=== PATIENT | female | born 1960 | race Caucasian/White ===

== ENCOUNTER → 2018-03-20 | Outpatient (CLI) | payer OTHER ==
[~2018-03-20] VITALS: Ht 162.6 cm; Wt 116.6 kg
[~2018-03-20] MED LIST: ALEVE220 MG PO; MEVACOR 20 MG T20 MG PO; NAPROSYN500 MG PO; NORCO 10-325 T1 EACH PO; NORVASC10 MG PO; PAROXETINE HCL40 MG PO; PERCOCET 5-3251 EACH PO; PHENERGAN 25 MG25 M1 PO; ROBAXIN 750 MG750 M1 PO; TENORETIC 50 T1 EACH PO; VALIUM5 MG PO; ZANAFLEX4 MG PO
[2018-03-20 10:05] VITALS: BP 142/87
== END ==
LOC: MRI 08:07
DX: M51.36 Other intervertebral disc degeneration, lumbar region (principal); M12.88 Other specific arthropathies, not elsewhere classified, other specified site
CPT/HCPCS: 62110; 62900; 70005